=== PATIENT | male | born 1955 | race Caucasian/White ===

== ENCOUNTER 2024-09-02 23:50 | Inpatient (IN) | payer OTHER ==
[~2024-09-02] VITALS: Ht 180 cm; Wt 115.0 kg
[2024-09-02 23:57] VITALS: BP 114/75
[2024-09-02] MEDS ORDERED: TRAZODONE HYDR300 MG PO (23:58)
[2024-09-02] MEDS ORDERED: FENOFIBRATE145 M1 PO (23:58)
[2024-09-02] MEDS ORDERED: MECLIZINE HCL25 M2 PO (23:58)
[2024-09-02] MEDS ORDERED: HALOPERIDOL5 MG PO (23:59)
[2024-09-03 00:21] LABS: BASO # 0.1 10*3/uL (0.0-0.1); BASO % 0.9 % (0.0-1.0); EOS # 0.1 10*3/uL (0.0-0.4); EOS % 1.3 % (1.0-4.0); HEMATOCRIT 43.1 % (42.0-52.0); MEAN CELL VOLUME 95.1 fl (80.0-94.0); MEAN CORPUSCULAR HGB 31.1 pg (27.0-31.0); MEAN CORPUSCULAR HGB CONC 32.7 g/dl (33.0-37.0); MEAN PLATELET VOLUME 9.1 fl (9.6-12.3); MONO # 0.9 10*3/uL (0.1-1.0); NEUT # 3.8 10*3/uL (2.3-7.9); NEUT % 57.1 % (47.0-73.0); PLATELET COUNT AUTOMATED 320 10*3/uL (130-400); RED BLOOD COUNT 4.53 10*6/uL (4.50-5.90); WHITE BLOOD COUNT 6.7 10*3/uL (4.8-10.8)
[2024-09-03] MEDS ORDERED: Albuterol Sulf/Ipratropium 3 ML VIAL NEB ONE ×2 (00:35→07:00)
[2024-09-03 00:46] LABS: ALKALINE PHOSPHATASE 130 U/L (46-116); BUN 11 mg/dl (9-23); CHLORIDE 106 mmol/L (98-107); CPK 143 U/L (34-171); POTASSIUM 3.8 mmol/L (3.4-5.1); SGPT/ALT 43 U/L (5-49); TOTAL PROTEIN 7.7 gm/dL (6.0-8.0)
[2024-09-03 00:47] LABS: ETHYL ALCOHOL < 3.0 mg/dl (<3)
[2024-09-03 01:00] LABS: URINE AMPHETAMINES Negative (1000ng/ml); URINE BARBITURATES Negative (200ng/ml); URINE BENZODIAZEPINES Negative (200ng/ml); URINE CANNABINOIDS (THC) Negative (50ng/ml); URINE COCAINE Negative (300ng/ml); URINE METHADONE Negative (300ng/ml); URINE OPIATES Negative (300ng/ml); URINE PHENCYCLIDINE Negative (25ng/ml)
[2024-09-03 01:04] LABS: BILIRUBIN Negative (Negative); BLOOD Negative (Negative); CLARITY Clear (Clear); COLOR Yellow (Yellow); GLUCOSE Negative (Negative); KETONE Negative (Negative); LEUKO ESTERASE Negative (Negative); NITRITE Negative (Negative); SPECIFIC GRAVITY <= 1.005 (1.001-1.030); UROBILINOGEN 0.2 E.U./dl (0.0-1.0)
[2024-09-03 01:35] LABS: RBC 0-2 rbc/hpf (0-2); WBC 0-2 wbc/hpf (0-5)
[2024-09-03 07:49] VITALS: BP 111/85
[2024-09-03] MEDS ORDERED: LORazepam 1 MG TAB PO PRN (10:50)
[2024-09-03] MEDS ORDERED: Ziprasidone Mesylate 20 MG VIAL IM PRN (10:55)
[2024-09-03] MEDS ORDERED: LORazepam 2 MG/ML VIAL IM PRN (10:55)
[2024-09-03 14:03] VITALS: BP 152/92
[2024-09-03] MEDS ORDERED: ACETAMINOPHEN 325 MG TAB PO PRN (14:15)
[2024-09-03] MEDS ORDERED: MG-AL HYDROXIDE/SIMETICONE 30 ML UDC PO PRN (14:15)
[2024-09-03] MEDS ORDERED: Magnesium Hydroxide 30 ML UDC PO PRN (14:15)
[2024-09-03 20:00] VITALS: BP 153/81
[2024-09-03] MEDS ORDERED: RISPERIDONE 1 MG TAB PO SCH (21:00)
[2024-09-03] MEDS ORDERED: Meclizine Hydrochloride 25 MG TAB PO SCH (22:00)
[2024-09-04 06:50] LABS: ALKALINE PHOSPHATASE 95 U/L (46-116); BUN 11 mg/dl (9-23); CHLORIDE 107 mmol/L (98-107); CHOLESTEROL 152 mg/dL (<200); LDL CHOLESTEROL 95 mg/dL (9-159); POTASSIUM 3.9 mmol/L (3.4-5.1); SGPT/ALT 41 U/L (5-49); TOTAL PROTEIN 7.5 gm/dL (6.0-8.0); TRIGLYCERIDES 56 mg/dl (<150)
[2024-09-04 08:10] LABS: VITAMIN D, 25-HYDROXY 37.1 ng/mL (30-100)
[2024-09-04 08:58] VITALS: BP 150/91
[2024-09-04] MEDS ORDERED: FENOFIBRATE 145 MG TAB PO SCH (09:00)
[2024-09-04] MEDS ORDERED: Rivastigmine Tartrate 4.6 MG/24 HR PATCH T SCH (10:00)
[2024-09-04] MEDS ORDERED: BENZONATATE 100 MG CAP PO PRN (19:45)
[2024-09-04 20:00] VITALS: BP 176/68
[2024-09-04] MEDS ORDERED: LACTULOSE 20 GM/30 ML UDC PO SCH (21:00)
[2024-09-04] MEDS ORDERED: BENZONATATE 100 MG CAP PO ONE (21:57)
[2024-09-05 06:52] VITALS: BP 140/78
[2024-09-05] MEDS ORDERED: RISPERIDONE 125 MG/0.35 ML SUSER.SYR SQ SCH (09:00)
[2024-09-05 20:00] VITALS: BP 128/85
[2024-09-06 08:00] VITALS: BP 114/66
[2024-09-06 08:33] LABS: FREE T4 1.07 ng/dl (0.89-1.76)
[2024-09-06 20:00] VITALS: BP 170/56
[2024-09-06] MEDS ORDERED: Mirtazapine 15 MG TAB PO SCH (21:00)
[2024-09-06] MEDS ORDERED: hydrOXYzine pamoate 25 MG CAP PO SCH (22:00)
[2024-09-07] MEDS ORDERED: Levothyroxine Sodium 25 MCG TAB PO SCH (06:00)
[2024-09-07 07:42] VITALS: BP 121/64
[2024-09-07] MEDS ORDERED: Rivastigmine Tartrate 9.5 MG/24 HR PATCH T SCH (09:00)
[2024-09-07 20:00] VITALS: BP 145/84
[2024-09-08 08:00] VITALS: BP 135/74
[2024-09-08 20:00] VITALS: BP 144/86
[2024-09-08] MEDS ORDERED: RAMELTEON 8 MG TAB PO SCH (21:00)
[2024-09-09 08:29] VITALS: BP 124/90
[2024-09-09] MEDS ORDERED: RIVASTIGMINE 13.3 MG/24 HR TDM T SCH (09:00)
[2024-09-09 19:47] VITALS: BP 146/79
[2024-09-10] MEDS ORDERED: RAMELTEON8 MG PO (07:39)
[2024-09-10] MEDS ORDERED: UZEDY125 MG/0.3 SQ (07:39)
[2024-09-10] MEDS ORDERED: RIVASTIGMINE1 EAC2 T (07:39)
[2024-09-10] MEDS ORDERED: MIRTAZAPINE15 M2 PO (07:39)
[2024-09-10 07:51] VITALS: BP 131/73
[2024-09-10] MEDS ORDERED: LACTULOSE20 GM/30 M PO (10:32)
[2024-09-10] MEDS ORDERED: Synthroid,Levo25 MCG PO (10:32)
[2024-10-03] MEDS ORDERED: RISPERIDONE 125 MG/0.35 ML SUSER.SYR SQ SCH (09:00)
== END 2024-09-10 10:48 | disposition home or self-care (01) | DRG 885 ==
LOC: ED 23:50 → 3N 09-03 11:35
PROVIDERS: Internal Medicine; Student in an Organized Health Care Education/Training Program; ADMIT Psychiatry & Neurology Psychiatry; ATTEND Psychiatry & Neurology Psychiatry
PROC: GZHZZZZ Group Psychotherapy (ICD-10-PCS; principal; 2024-09-04)
PROC: GZ56ZZZ Individual Psychotherapy, Supportive (ICD-10-PCS; 2024-09-04)
DX: F25.9 Schizoaffective disorder, unspecified (principal); F23 Brief psychotic disorder; F03.93 Unspecified dementia, unspecified severity, with mood disturbance; I10 Essential (primary) hypertension; R74.01 Elevation of levels of liver transaminase levels; R73.9 Hyperglycemia, unspecified; G47.00 Insomnia, unspecified; E66.9 Obesity, unspecified; Z88.8 Allergy status to other drugs, medicaments and biological substances; Z91.018 Allergy to other foods; Z79.01 Long term (current) use of anticoagulants; Z79.2 Long term (current) use of antibiotics; Z79.899 Other long term (current) drug therapy; Z82.5 Family history of asthma and other chronic lower respiratory diseases; Z82.3 Family history of stroke; Z78.9 Other specified health status; Z68.35 Body mass index [BMI] 35.0-35.9, adult